=== PATIENT | male | born 2000 | race Caucasian/White ===

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

== ENCOUNTER 2023-12-07 13:44 | Emergency (ER) | payer OTHER, SELFPAY ==
[2023-12-07 14:07] VITALS: BP 157/89; PULSE 89; RESP 17; TEMP 37.9; O2SAT 99; BMI 44.1
--- NOTE | 2023-12-07 15:19 | W.ED.FEVER ---
HPI - Fever General: Chief Complaint: Fever Stated Complaint: mouth sores, fever, head pressure Time Seen by Provider: 12/07/23 15:19 History of Present Illness: This patient is a 23-year-old presenting with sores in his mouth that are preventing him from eating and drinking. He has had symptoms for about 4 days. He has had fevers off and on. He complains of pain with swallowing. He also has had some headache. He was seen at a walk-in clinic in [place], where he works, and given prescriptions for valacyclovir, chlorhexidine mouthwash, viscous lidocaine. He has not used the lidocaine because they warned him of how dangerous it was and he was hesitant to take a risk. He is here today with his mother as he is home for the weekend. She is concerned that he has not been drinking and could be dehydrated. He denies any other medical history. He has not been taking ibuprofen or Tylenol. PFSH ED PFSH: Social History Smoking and tobacco/nicotine status: never used tobacco/nicotine Physical Exam Const: COMMON NORMALS: no acute distress, patient oriented x3, no limitations and alert GENERAL APPEARANCE: cooperative and comfortable HENMT: MOUTH: moist mucous membranes abnormal (Moist, vesicular lesions on the tongue, buccal membranes, soft palate) and malodorous breath Eye: GENERAL EYE: appearance normal, both eyes and all related structures Neck/C-Spine: COMMON NORMALS: supple, no meningeal signs and no JVD Chest: COMMONS NORMALS: normal inspection of the chest Resp: COMMON NORMALS: normal respiratory effort, No use of accessory muscles and clear to auscultation bilaterally AUSCULTATION: clear to auscultation bilaterally Cardio: COMMON NORMALS: no JVD, regular rate, regular rhythm and No murmurs present (Cardio) RATE: regular rate RHYTHM: regular rhythm GI: COMMON NORMALS: Normal to inspection, nondistended, normoactive bowel sounds present, Soft to palpation and non-tender INSPECTION: Yes normal to inspection AUSCULTATION: Yes normoactive bowel sounds PALPATION: Yes Soft to palpation Back/Pelvis: COMMON NORMALS: thoracic and lumbar spine normal to inspection Extremity: COMMON NORMALS: normal to inspection Neuro: COMMON NORMALS: patient oriented x3, moves all extremities, no focal motor deficits and no sensory deficits noted SENSORIUM/ORIENTATION: Yes alert MENINGEAL SIGNS: Yes no meningeal signs Psych: COMMON NORMALS: mental status grossly normal, cooperative and normal affect Skin: COMMON NORMALS: no rashes or lesions noted and turgor normal GENERAL SKIN EXAM: no rashes or lesions noted and turgor normal Course Vital Signs: Vital signs: Vital Signs Temperature 100.3 F H 12/07/23 14:07 Pulse Rate 89 12/07/23 14:07 Respiratory Rate 17 12/07/23 14:07 Blood Pressure 157/89 12/07/23 14:07 Pulse Oximetry 94 12/07/23 17:20 Oxygen Delivery Me thod Room Air 12/07/23 17:20 MDM - Fever Medical Decision Making History and physical most suggestive of [id number]-mouth viral illness. There are no lesions on his hands and he denies them on his feet although his shoes were not removed to examine the soles of his feet. He does not want an IV. I have ordered some Magic mouthwash and following that he will attempt to drink some fluids. As long as he can tolerate fluids I do not think he needs IV or labs. He was encouraged to go ahead and use the Magic mouthwash at home. He should have some improvement over the next few days based on the typical course of this illness. The valacyclovir is probably not helping. No radiology studies performed this visit Discharge Plan Discharge Patient Disposition: Home Clinical Impression: Coxsackievirus infection of oral cavity Condition: Stable Prescriptions: New magic mouthwash 15 ml mucous membrane 6XD PRN (Reason: pain) Qty: 200 0RF Rx Instructions: diphenhydramine, viscous lidocaine 2%, maalox Discharge Orders: Discharge ED (Routine); Ordered 12/07/23 Ordered By: [place] Weldon Referrals: Joyce Pérez MD [Primary Care Provider] - Discharge Diet: Advance as tolerated Discharge Activity: Increase activity as tolerated Patient Instructions: Opioid Safety, Pain Management Activity Restrictions/Additional Instructions: Make sure to get enough fluids - use the magic mouthwash prior to attempting to drink. Symptoms should start improving in the next few days. Ibuprofen and tylenol may also help with pain. Coding Level of Care Code ED Substance Abuse Technician for Lawrence Dyer
[2023-12-07] MEDS: lidocaine 2% viscous 15 ML, diphenhydrAMINE oral liq 37.5 MG, aluminum-mag hydrox-simet... MUCOUS MEM (15:43)
[2023-12-07] MEDS: ibuprofen 600 mg Tablet PO (15:43)
[2023-12-07 17:20] VITALS: O2SAT 94
[2023-12-07 18:15] VITALS: BP 131/73; O2SAT 99
== END 2023-12-07 18:15 | disposition home or self-care (01) ==
PROVIDERS: Emergency Provider Emergency Medicine; PCP Family Medicine
DX: B33.8 Other specified viral diseases (principal)
CPT/HCPCS: 99283